=== PATIENT | female | born 1995 | race Caucasian/White ===

== ENCOUNTER 2022-08-18 18:36 | Emergency (ER) | payer BC, OTHER ==
[~2022-08-18] VITALS: Ht 152.4 cm; Wt 81.8 kg
[2022-08-18 18:36] VITALS: BP 129/84
[2022-08-18] MEDS ORDERED: TRI-TAB (18:51)
[2022-08-18] MEDS ORDERED: TETRACAINE 0.5% OPHTH SOLN 4ML OS ONE (19:10)
[2022-08-18] MEDS ORDERED: FLUORESCEIN OPHTH 1MG STRIP OS ONE (19:10)
[2022-08-18] MEDS ORDERED: BOOSTRIX/ADACEL VACCINE (DIPHTH/PERTUSS/ACELL/TETANUS) 0.5ML SYR IM ONE (19:40)
[2022-08-18] MEDS ORDERED: ERYTHROMYCIN OPHTH OINT OS ONE (21:10)
[2022-08-18] MEDS ORDERED: ERYT5OIN25 OS (21:22)
== END 2022-08-18 21:45 | disposition home or self-care (01) ==
LOC: M ED 18:36
DX: H16.002 Unspecified corneal ulcer, left eye (principal); T26.12XA Burn of cornea and conjunctival sac, left eye, initial encounter; Z77.098 Contact with and (suspected) exposure to other hazardous, chiefly nonmedicinal, chemicals; F17.290 Nicotine dependence, other tobacco product, uncomplicated; Z23 Encounter for immunization

== ENCOUNTER → 2023-05-05 | Outpatient (REF) | payer BC ==
[~2023-05-05] MED LIST: ERYT5OIN25 OS; TRI-TAB
[2023-05-05 18:31] LABS: ALKALINE PHOSPHATASE 69 U/L (46-116); ALT/SGPT 30 U/L (7.0-40); AST/SGOT 22 U/L (<34); BILIRUBIN,TOTAL 0.6 MG/DL (0.3-1.2); BLOOD UREA NITROGEN 11 MG/DL (9-23); CALCIUM LEVEL 9.5 MG/DL (8.5-10.1); CARBON DIOXIDE LEVEL 28 MMOL/L (20-31); CHLORIDE LEVEL 105 MMOL/L (98-107); CHOLESTEROL LEVEL 153 MG/DL (<200); CHOLESTEROL RISK RATIO 2.36 (<5); CREATININE FOR GFR 0.59 MG/DL (0.55-1.30); GLOMERULAR FILTRATION RATE > 60.0 (>60); GLUCOSE, FASTING 83 MG/DL (60-100); HDL CHOLESTEROL 64.7 MG/DL (>40); LDL CHOLESTEROL 74.1 MG/DL (<100); NON-HDL-C 88.3 MG/DL; POTASSIUM SERUM 4.2 MMOL/L (3.5-5.1); SODIUM LEVEL 141 MMOL/L (136-145); TOTAL PROTEIN 7.3 G/DL (5.7-8.2); TRIGLYCERIDES LEVEL 71 MG/DL (<150)
[2023-05-05 18:47] LABS: HEMOGLOBIN A1c 4.9 % (4.0-6.0)
== END ==
LOC: M SFHCCLAY 11:16
PROVIDERS: ATTEND Nurse Practitioner Family
DX: Z13.220 Encounter for screening for lipoid disorders (principal); Z13.1 Encounter for screening for diabetes mellitus

== ENCOUNTER → 2024-05-10 | Outpatient (REF) | payer BC ==
[2024-05-10 19:16] LABS: ALKALINE PHOSPHATASE 66 U/L (35-104); ALT/SGPT 53 U/L (7.0-40); AST/SGOT 151 U/L (<34); BILIRUBIN,TOTAL 0.7 MG/DL (0.3-1.2); BLOOD UREA NITROGEN 11 MG/DL (9-23); CALCIUM LEVEL 9.9 MG/DL (8.5-10.1); CARBON DIOXIDE LEVEL 27 MMOL/L (20-31); CHLORIDE LEVEL 106 MMOL/L (98-107); CHOLESTEROL LEVEL 152 MG/DL (<200); CHOLESTEROL RISK RATIO 2.75 (<5); CREATININE FOR GFR 0.62 MG/DL (0.55-1.30); GLOMERULAR FILTRATION RATE > 60.0 (>60); GLUCOSE, FASTING 74 MG/DL (60-100); HDL CHOLESTEROL 55.1 MG/DL (>40); LDL CHOLESTEROL 79.5 MG/DL (<100); NON-HDL-C 96.9 MG/DL; POTASSIUM SERUM 4.6 MMOL/L (3.5-5.1); SODIUM LEVEL 140 MMOL/L (136-145); TOTAL PROTEIN 7.2 G/DL (5.7-8.2); TRIGLYCERIDES LEVEL 87 MG/DL (<150)
== END ==
LOC: M SFHCCLAY 11:22
PROVIDERS: ATTEND Nurse Practitioner Family
DX: Z13.220 Encounter for screening for lipoid disorders (principal); Z13.1 Encounter for screening for diabetes mellitus